=== PATIENT | female | born 2000 | race Caucasian/White ===

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

== ENCOUNTER 2018-09-26 20:39 | Emergency (ER) | payer OTHER ==
--- NOTE | 2018-09-26 21:01 | ED ---
- HPI Summary HPI Summary: This patient is a 17 year old F presenting to ED with a chief complaint of labor contractions since 1600. Her due date was September 18, 2018. This is her 1st . She sees Dr. Forde. She reports she had yellow mucosal discharge since 1.5 weeks ago, but she hasnt noticed any watery discharge. She has an appointment tomorrow for her to be induced. The patient rates the pain 10/10 in severity. Symptoms aggravated by nothing. Symptoms alleviated by nothing. - History of Current Complaint Chief Complaint: EDOBProblems Stated Complaint: IN LABOR 41 WEEKS PER PT Hx Obtained From: Patient Onset/Duration: Started Minutes Ago, Still Present Timing: Intermittent Severity: Severe Current Severity: Severe Pain Intensity: 10 Location of Pain: Other: - abdomen Aggravating Factors: Nothing Alleviating Factors: Nothing - Assessment Hx Now: No Hx : 1 SAB: 0 IEA: 0 Hx Hysterectomy: No - Additional Pertinent History Maternal Blood Type and Rh: A Positive - Allergies/Home Medications Allergies/Adverse Reactions: Allergies Allergy/AdvReac Type Severity Reaction Status Date / Time Penicillins Allergy Anaphylatic Verified 09/26/18 21:27 Shock DUST Allergy Mild Congestion Uncoded 09/26/18 21:27 blue cheese Allergy Anaphylatic Uncoded 09/26/18 21:27 Shock PMH/Surg Hx/FS Hx/Imm Hx Endocrine/Hematology History: Denies: Hx Anticoagulant Therapy, Hx Blood Disorders, Hx Diabetes, Hx Thyroid Disease, Hx Unexplained Bleeding Cardiovascular History: Denies: Hx Hypertension Respiratory History: Reports: Hx Asthma - AYOUNG CHILD Denies: Hx Chronic Obstructive Pulmonary Disease (COPD), Hx Lung Cancer GI History: Denies: Hx Ulcer Neurological History: Denies: Hx Dementia, Hx Migraine, Hx Seizures, Hx Transient Ischemic Attacks (TIA) Psychiatric History: Reports: Hx Anxiety, Hx Depression - off meds for Denies: Hx Schizophrenia, Hx Bipolar Disorder Infectious Disease History: No Infectious Disease History: Denies: Hx Clostridium Difficile, Hx Hepatitis, Hx Human Immunodeficiency Virus (HIV), Hx of Known/Suspected MRSA, Hx Shingles, Hx Tuberculosis, Hx Known/ Suspected VRE, Hx Known/Suspected VRSA, History Other Infectious Disease, Traveled Outside the [place] in Last 30 Days - Family History Known Family History: Negative: Cardiac Disease Family History: no cardio-vascular issues in family lineage - Social History Alcohol Use: None Hx Substance Use: No Substance Use Type: Reports: None Hx Tobacco Use: No Smoking Status (MU): Light Every Day Tobacco Smoker Type: Cigarettes Amount Used/How Often: 1-2cig/day Have You Smoked in the Last Year: No Review of Systems Positive: Abdominal Pain Positive: other - labor contractions, yellow mucosal discharge since 1.5 weeks ago; did not notice any watery discharge All Other Systems Reviewed And Are Negative: Yes Physical Exam - Summary Physical Exam Summary: VITAL SIGNS: Reviewed. GENERAL: Patient is a well-developed and nourished FEMALE who is lying comfortable in the stretcher. Patient is not in any acute respiratory distress. HEAD AND FACE: No signs of trauma. No ecchymosis, hematomas or skull depressions. No sinus tenderness. EYES: PERRLA, EOMI x 2, No injected conjunctiva, no nystagmus. EARS: Hearing grossly intact. Ear canals and tympanic membranes are within normal limits. MOUTH: Oropharynx within normal limits. NECK: Supple, trachea is midline, no adenopathy, no JVD, no carotid bruit, no c- spine tenderness, neck with full ROM CHEST: Symmetric, no tenderness at palpation LUNGS: Clear to auscultation bilaterally. No wheezing or crackles. CVS: Regular rate and rhythm, S1 and S2 present, no murmurs or gallops appreciated. ABDOMEN: Soft, non-tender. No signs of distention. No rebound no guarding, and no masses palpated. Bowel sounds are normal. Fundal level is at 36 weeks. EXTREMITIES: FROM in all major joints, no edema, no cyanosis or clubbing. NEURO: Alert and oriented x 3. No acute neurological deficits. Speech is normal and follows commands. SKIN: Dry and warm PELVIC EXAM: Cephalic, head is not engaged, cervix is effaced 50%, closed and posterior. - Physical Exam Triage Information Reviewed: Yes Vital Signs On Initial Exam: Initial Vitals Temp Pulse Resp BP Pulse Ox 98.8 F 86 22 141/103 97 09/26/18 20:41 09/26/18 20:41 09/26/18 20:41 09/26/18 20:41 09/26/18 20:41 Vital Signs Reviewed: Yes Diagnostics - Vital Signs Vital Signs Temp Pulse Resp BP Pulse Ox 09/26/18 20:41 98.8 F 86 22 141/103 97 - Laboratory Lab Statement: Any lab studies that have been ordered have been reviewed, and results considered in the medical decision making process. Course/Dx - Course Assessment/Plan: This patient is a 17 year old F presenting to ED with a chief complaint of labor contractions since 1600. Her due date was September 18, 2018. This is her 1st . Spoke with Dr. Hicks at 2105 and he will see the patient down in OB. This patient will be discharged down to OB with dx of labor. Patient understands and agrees with this plan. - Differential Diagnosis/HQI/PQRI: Other: - labor - Diagnoses Provider Diagnoses: Active labor - Provider Notifications Discussed Care Of Patient With: Robert Hicks Time Discussed With Above Provider: 21:05 Instructed by Provider To: Other - Spoke with Dr. Hicks and he will see the patient down in OB. Discharge - Sign-Out/Discharge Documenting (check all that apply): Patient Departure - discharge to OB Patient Received Moderate/Deep Sedation with Procedure: No - Discharge Plan Condition: Stable Disposition: HOME Patient Education Materials: (ED) Referrals: She Forde MD [Primary Care Provider] - Additional Instructions: GO STRAIGHT DOWN TO OB. - Billing Disposition and Condition Condition: STABLE Disposition: Home - Attestation Statements Document Initiated by Rooseveltibshelia: Yes Documenting Scribe: Yair Peña Provider For Whom Bryan is Documenting (Include Credential): Mesha Gill MD Scribe Attestation: Yair Jackson, scribed for Mesha Gill MD on 09/27/18 at 0636. Scribe Documentation Reviewed: Yes Provider Attestation: The documentation as recorded by the Yair haynes accurately reflects the service I personally performed and the decisions made by Margie rivas MD Status of Scribe Document: Viewed
[2018-09-26 21:22] VITALS: BP 142/88
== END 2018-09-26 21:15 | disposition home or self-care (01) ==
LOC: ED 20:39
DX: O47.1 False labor at or after 37 completed weeks of gestation (principal); Z3A.41 41 weeks gestation of pregnancy; Z88.0 Allergy status to penicillin; O99.333 Smoking (tobacco) complicating pregnancy, third trimester; F17.210 Nicotine dependence, cigarettes, uncomplicated
CPT/HCPCS: 99281

== ENCOUNTER 2018-09-26 21:11 | Inpatient (IN) | payer OTHER ==
[2018-09-26] MEDS ORDERED: Lactated Ringers 1000 ML Bag* 1,000 ML IV ONE ×2 (22:22→23:35)
[2018-09-26] MEDS ORDERED: Buffered Lidocaine 1% SYRIN* 1 ML/SYRINGE INTRADERM ONE (22:22)
--- NOTE | 2018-09-26 22:31 | HP ---
General Information - Reason for Visit Patient reports contractions of increasing frequency, mucus and bloody show. - General Information Maternal Age: 17 Grav: 1 Para: 0 SAB: 0 IEA: 0 Estimated Due Date: 09/18/18 Determined By: LMP Maternal Blood Type and Rh: A Positive - Results this Serology/RPR Result: Non-Reactive Rubella Result: Non-Immune HBsAg Result: Negative HIV Result: Negative GBS Culture Result: Negative Past Medical History Delivery History: See Records Delivery History Comment: No previous pregnancies Pertinent Past Medical History: See Records Past Medical History Comment: Depression, anxiety ADHD Wrist fx 2017 Pertinent Past Surgical History: None Pertinent Family History: See Records Family History Comment: COPD CP Heart Dz [place] - Antepartal Records Antepartal Records: Reviewed, Complicated by: - smoker, quit 07/27/18; Joe Ab+ (no follow up needed) Review of Systems Constitutional: Uncomfortable CV Complaint: No Respiratory: Shortness of Breath: No Gastrointestinal: No Nausea/Vomiting, Normal Bowel Movement Genitourinary: No Bleeding, No Leaking Fluid, Spotting Musculoskeletal: Back Pain, Contractions Neurological: No Headache, No Visual Changes Movement: Normal Exam Allergies/Adverse Reactions: Allergies Penicillins Allergy (Verified 09/26/18 21:27) Anaphylatic Shock DUST Allergy (Mild, Uncoded 09/26/18 21:27) Congestion blue cheese Allergy (Uncoded 09/26/18 21:27) Anaphylatic Shock BP 126/75 T 98.2 HR 72 RR 18 O2 100 - Measurements Height: 5 ft 7 in Weight: 149 lb Weight in lbs: 149.581833 Body Mass Index (BMI): 23.3 Pre- Weight: 116 lb Weight Gained This : 33 lbs and 0 ozs - Exam Breast: Breast Exam Deferred CVA: No CVA Tenderness Extremities: No Edema Heart: Normal Rhythm/Heart Sounds HEENT: No Significant Findings Lungs: Clear Bilaterally Rectal: Rectal Exam Deferred Reflexes: DTR 2+, - - no clonus Thyroid: - - WNL @ entry to care - Abdominal Exam Abdomen Exam: Non-Tender - Ultrasound/Biophysical Profile Ultrasound Status: Not Done Targeted Exam Findings See L&D Outpatient Visit Provider Note for Findings: Yes Estimated Weight: 8lb Cervical Exam: 5cm, 6cm Effacement: 80% Station: -2 Presenting Part: Vertex Membrane Status: Intact Bleeding/Discharge: None EFM Findings - External Monitor Findings Baseline Heart Rate: 120 External Monitor Findings: Accelerations Present, No Pattern of Variable or Late Decelerations, Variability Moderate Contractions: Regular, Moderate, 45-90 Seconds Contraction Frequency: q 2-4 min Assessment/Plan - Assessment IUP @ 41+2 weeks gestation in active labor. IBOW. No evidence metabolic acidemia - Plan Plan: Admit - Anticipate Vaginal Delivery Plan Comment: Admit to L&D. PARQ discussion of pain management options, questions answered. Patient desires epidural and anesthesia paged. Anticipate SVB. - Date/Time of Admission Date of Admission: 09/26/18 Time of Admission: 22:00
[2018-09-26 22:37] LABS: ABS Basophils 0.1 10^3/ul (0-0.2); ABS Eosinophils 0.2 10^3/ul (0-0.6); ABS Lymphocytes 2.1 10^3/ul (1.0-4.8); ABS Monocytes 0.8 10^3/ul (0-0.8); ABS Neutrophils 13.8 10^3/ul (1.5-7.7); Eosinophil % 0.9 %; Hematocrit 39 % (35-47); Hemoglobin 13.3 g/dL (12.0-16.0); Lymphocyte % 12.4 %; Mean Corpuscular HGB Conc 34 g/dL (31-36); Mean Corpuscular Hemoglobin 30 pg (27-31); Mean Corpuscular Volume 88 fL (80-97); Mean Platelet Volume 9.8 fL (7.4-10.4); Nucleated Red Blood Cells % 0.1; Platelet Count 255 10^3/uL (150-450); Red Cell Distribution Width 13 % (10.5-15)
[2018-09-26] MEDS ORDERED: OBEPIDURAL* 250 ML EPIDURAL ONE (22:38)
[2018-09-26] MEDS ORDERED: fentaNYL* 50 MCG/ML 2 ML VIAL (100 MCG VIAL) ONE (22:42)
[2018-09-26] MEDS ORDERED: Lactated Ringers 1000 ML Bag* 1,000 ML IV SCH ×2 (23:00→23:45)
[2018-09-26] MEDS ORDERED: Phenylephrine 40 MCG/ML SYRINGE IV PUSH PRN ×2 (23:35)
[2018-09-26] MEDS ORDERED: Sodium Citrate/Citric Acid* 15 ML UDC PO PRN (23:35)
[2018-09-26] MEDS ORDERED: Lactated Ringers 1000 ML Bag* 500 ML IV PRN ×2 (23:35)
[2018-09-26] MEDS ORDERED: Famotidine TAB* 20 MG PO PRN (23:35)
[2018-09-26] MEDS ORDERED: OBEPIDURAL* 250 ML EPIDURAL SCH (23:45)
--- NOTE | 2018-09-27 01:07 | PN ---
Progress Note - Progress Note Date of Service: 09/27/18 Note: S: Patient comfortable with epidural, dozing some. Reports no change or increase in pressure/sensation. O: VE deferred FHT 125, min guille, +accels, occ early decels VSS UCs q 4-5 min A: IUP in active labor P: Encourage rest, position changes. Anticipate SVB.
--- NOTE | 2018-09-27 09:08 | PN ---
Progress Note - Progress Note Date of Service: 09/27/18 SOAP: Subjective: Pt comfortable with epidural. Denies pressure. Got some sleep after epidural placement. Partner and friend at bedside. Objective: Cervix: 8cm/ 90%/ -1/ bulging bag prior to AROM AROM performed to blood-tinged fluid Significant perineal edema noted FHR: Baseline 120, moderate variability, no accels, early decels UCs: Q2 minutes Assessment: Pt comfortable. No evidence of acidemia. Labor progress has been somewhat slow since last check. Membranes now ruptured. Plan: Monitor for increased bleeding, anticipate .
[2018-09-27] MEDS ORDERED: Terbutaline INJ* 1 MG/ML VIAL ONE (12:13)
--- NOTE | 2018-09-27 12:40 | PN ---
Progress Note - Progress Note Date of Service: 09/27/18 Note: Pt was experiencing increased pressure and discomfort with ctx. While at bedside FEH exhibited prolonged deceleration, which did not respond to position changes, fluid bolus, and O2 administration. Cervical exam showed anterior lip, +[address] Porter called to the bedside and FSE placed. Pt felt to have excessive uterine tone, so Terbutaline 0.25 mg administered SQ. FHR returned to baseline. Pt currently resting on her left side, O2 in place. Will remove O2 after 30 minutes of reassuring FHTs. When pt fully dilated will attempt trial of pushing.
[2018-09-27] MEDS ORDERED: Witch Hazel PAD* JAR ONE (12:54)
[2018-09-27] MEDS ORDERED: Dibucaine 1% 28.35 GM TUBE ONE (12:54)
[2018-09-27] MEDS ORDERED: Oxytocin in LR* 20 UNITS/1,000 ML BAG IVPB ONE (14:25)
[2018-09-27] MEDS ORDERED: Dibucaine 1% 28.35 GM TUBE PR PRN (17:04)
[2018-09-27] MEDS ORDERED: Glycerin ADULT SUPP PR PRN (17:04)
[2018-09-27] MEDS ORDERED: Witch Hazel PAD* JAR TOPICAL PRN (17:04)
[2018-09-27] MEDS: Acetaminophen TAB* 325 MG PO PRN (17:20)
[2018-09-27] MEDS: Ibuprofen TAB* 600 MG PO PRN (17:20)
[2018-09-27] MEDS ORDERED: Lactated Ringers 1000 ML Bag* 1,000 ML IV SCH (18:00)
[2018-09-27] MEDS: Docusate CAP* 100 MG PO SCH (21:01)
--- NOTE | 2018-09-28 00:30 | PROCNOTE ---
[facility] OB: Delivery Note - Delivery A Date of : 09/27/18 Time of : 14:47 Arabi Sex: Male Weight at : 3.515 kg Score 1 Minute: 8 Score 5 Minutes: 9 Gestational Age in Weeks and Days at Delivery: 41 Weeks and 2 Days Delivery Method: Spontaneous Vaginal Labor: Spontaneous Did Patient attempt ?: N/A, No Previous Amniotic Fluid: Meconium Estimated Blood Loss: 250 Anesthesia/Analgesia: CEI for Labor Delivered By: Ashley José Nursery Level of Nursery: Regular/Bedside - Perineum Perineal Injury: Abrasion Only - Not Repaired Perineal Repair: None - Events Delivery Events of Note: Pitocin Only After Delivery, Supplemental O2 to Mother - Additional Delivery Notes Additional Delivery Notes: Pt presented in active labor, and soon requested and received an epidural with good relief of pain. Pt progressed and eventually AROM was performed to meconium stained and blood stained fluid. At around 9cm dilation FHR exhibited prolonged deceleration, treated with position changes, O2 and IV bolus withour resolution. Dr. Porter called to room, FSE placed, and Terbutaline administered, at which time FHR returned to baseline. Pt continued to progress to full dilation and eventually began to feel an urge to push. Pt coached on pushing. Started out pushing effectively and coping well, as descent progressed, she struggled to cope with the sensations. Coached through pushing to and through slow, controlled delivery of the head. Head was followed easily by shoulders. Infant placed on maternal abdomen, suctioned with bulb syringe for copious secretions. Infant vigorous after suctioning, heart rate> 100 bpm. Placenta delivered spontaneously, rosenda side. Inspection of the perineum revealed intact status. Two very small, hemostatic lacerations noted near introitus, not repaired. Anticipate normal revocery proceedd
[2018-09-28] MEDS: Ibuprofen TAB* 600 MG PO PRN (07:20)
[2018-09-28 08:19] LABS: ABS Basophils 0.1 10^3/ul (0-0.2); ABS Eosinophils 0.1 10^3/ul (0-0.6); ABS Lymphocytes 1.2 10^3/ul (1.0-4.8); ABS Monocytes 0.5 10^3/ul (0-0.8); ABS Neutrophils 10.8 10^3/ul (1.5-7.7); Eosinophil % 0.6 %; Hematocrit 29 % (35-47); Lymphocyte % 9.1 %; Mean Corpuscular HGB Conc 34 g/dL (31-36); Mean Corpuscular Hemoglobin 31 pg (27-31); Mean Corpuscular Volume 89 fL (80-97); Mean Platelet Volume 8.6 fL (7.4-10.4); Platelet Count 182 10^3/uL (150-450); Red Blood Count 3.26 10^6 /uL (3.70-4.87); Red Cell Distribution Width 13 % (10.5-15); White Blood Count 12.6 10^3/uL (3.5-10.8)
[2018-09-28] MEDS: Ferrous Gluconate TAB* 324 MG TAB PO SCH ×2 (09:09→22:18)
[2018-09-28] MEDS: Docusate CAP* 100 MG PO SCH ×3 (09:10→22:05)
[2018-09-28] MEDS ORDERED: Measles, Mumps,Rubella VACC* 0.5 ML/VIAL SUBCUT ONE (09:51)
[2018-09-28] MEDS ORDERED: Nicotine PATCH 7 MG/24 HR* PATCH TRANSDERM SCH (11:00)
[2018-09-28] MEDS: Acetaminophen TAB* 325 MG PO PRN ×2 (17:35→22:08)
[2018-09-28] MEDS ORDERED: Nicotine Patch Removal NOTE FOLLOW UP SCH (21:00)
[2018-09-29] MEDS: Ferrous Gluconate TAB* 324 MG TAB PO SCH (08:39)
[2018-09-29 09:35] VITALS: BP 110/64
== END 2018-09-29 10:15 | disposition home or self-care (01) | DRG 560 ==
LOC: MCHOBOUT 21:11 → MCHOB 21:54
PROVIDERS: ADMIT Midwife; ATTEND Midwife
PROC: 10E0XZZ Delivery of Products of Conception, External Approach (ICD-10-PCS; principal; 2018-09-26)
PROC: 4A1HXCZ Monitoring of Products of Conception, Cardiac Rate, External Approach (ICD-10-PCS; 2018-09-26)
PROC: 10907ZC Drainage of Amniotic Fluid, Therapeutic from Products of Conception, Via Natural or Artificial Opening (ICD-10-PCS; 2018-09-26)
DX: O48.0 Post-term pregnancy (principal); Z37.0 Single live birth; O99.334 Smoking (tobacco) complicating childbirth; F17.210 Nicotine dependence, cigarettes, uncomplicated; O77.0 Labor and delivery complicated by meconium in amniotic fluid; O71.82 Other specified trauma to perineum and vulva; O76 Abnormality in fetal heart rate and rhythm complicating labor and delivery; Z3A.41 41 weeks gestation of pregnancy; Z88.0 Allergy status to penicillin
CPT/HCPCS: 36415; 85025; 86850; 86870; 86880; 86900; 86901; A9270-GY; J3010; J3105